=== PATIENT | male | born 1970 | race African-American/Black ===

== ENCOUNTER 2024-07-13 12:09 | Emergency (ER) | payer MEDICAID ==
[~2024-07-13] VITALS: Ht 190.5 cm; Wt 113.0 kg
[2024-07-13 12:14] VITALS: O2SAT 99
[2024-07-13] MEDS ORDERED: IBUP-2029 MT (14:11)
[2024-07-13] MEDS ORDERED: ACET-2708 MT (14:20)
[2024-07-13] MEDS: HYDROCODONE/ACETAMINOPHEN 5/325MG TABLET PO NR (14:31)
[2024-07-13] MEDS: IBUPROFEN 600MG TABLET PO NR (14:31)
[2024-07-13 14:34] VITALS: BP 133/84; PULSE 98; RESP 18; TEMP 36.94740; O2SAT 99
== END 2024-07-13 14:52 | disposition home or self-care (01) ==
LOC: ER 12:09
DX: M17.11 Unilateral primary osteoarthritis, right knee (principal); M25.561 Pain in right knee; Z98.84 Bariatric surgery status
CPT/HCPCS: 73562; 99283